=== PATIENT | female | born 1995 | race African-American/Black ===

== ENCOUNTER 2021-06-30 11:02 | Emergency (ER) | payer OTHER ==
[~2021-06-30] VITALS: Ht 165.1 cm; Wt 90.7 kg
[2021-06-30] MEDS ORDERED: PROAIR HFA8.5 GM INH (11:26)
[2021-06-30 11:36] LABS: URINE BILIRUBIN NEGATIVE (Negative); URINE BLOOD 1+ (Negative); URINE COLOR YELLOW; URINE GLUCOSE-RANDOM* NEGATIVE (Negative); URINE KETONES NEGATIVE (Negative); URINE LEUKOCYTES-REFLEX 3+ (Negative); URINE NITRITE-REFLEX NEGATIVE (Negative); URINE PROTEIN (DIPSTICK) 1+ (Negative); URINE SPECIFIC GRAVITY 1.015 (1.005-1.035)
[2021-06-30 11:37] LABS: URINE CLARITY CLOUDY
[2021-06-30 11:51] LABS: CASTS None Seen /LPF (None Seen); SQUAMOUS 0-3 Few /LPF (0-3); URINE WBC-REFLEX >25 Many /HPF (0-5)
[2021-06-30 11:52] LABS: CRYSTALS None Seen /LPF (None Seen); URINE RBC 1-2 Rare /HPF (NONE SEEN)
[2021-06-30] MEDS ORDERED: CEPHALEXIN500 MG PO (12:59)
[2021-06-30 13:35] VITALS: BP 125/72
--- NOTE | 2021-06-30 15:54 | EKG ---
[address] [address] ELECTROCARDIOGRAM REPORT Name: MIRA ROMERO Room #: [facility] Craft#: [id number] Admission: 06/30/21 Attend Phys: Discharge: 06/30/21 Date of : [birth year] Report #: [id number] [facility] ED Test Date: 2021-06-30 Test Time: 11:20:30 Pat Name: MIRA ROMERO Department: Room: Gender: Sheet Layer: : 1995 Requested By: Sherice Kohler Order Number: [id number] MD: Ronal Rivera Measurements Intervals [place] Rate: 61 P: 22 VT: 181 QRS: 33 QRSD: 84 T: 23 QT: 393 QTc: 396 Interpretive Statements Sinus rhythm No previous ECG available for comparison Electronically Signed On 06-30-2021 15:54:08 CDT by Ronal Rivera [email or web address] <ELECTRONICALLY SIGNED> By: Ronal Rivera MD, [facility] 06/30/21 1554 1120 1120 Ronal Rivera MD, FACC /EPI
== END 2021-06-30 13:35 | disposition home or self-care (01) ==
LOC: ER 11:02 → EDBD 11:02 → ER 13:35
PROVIDERS: Nurse Practitioner Family
DX: N30.01 Acute cystitis with hematuria (principal); J45.909 Unspecified asthma, uncomplicated; K21.9 Gastro-esophageal reflux disease without esophagitis; Z88.8 Allergy status to other drugs, medicaments and biological substances